=== PATIENT | female | born 1970 ===

== ENCOUNTER 2021-09-16 15:51 | Emergency (ER) | payer OTHER ==
--- OUTSIDE RECORDS SUMMARY | 2021-09-16 15:54 | XMS REPORT | Continuity of Care Document ---
:1970 Author Organization [facility] t Address [address] [place] [address] Care Team Providers Name Role Phone Di Alejandra DARBY Attending Clinician Joanne OROZCO Attending Clinician Unavailable Doctor Unassigned, Name Attending Clinician Unavailable LYNETTE Attending Clinician Unavailable Payers Payer Name Policy Type Policy Number Effective Date Expiration Date Alberto FLOR II [id number] 2017 00:00:00 Problems This patient has no known problems. Allergies, Adverse Reactions, Alerts Allergy Allergy Status Severity Reaction(s) Onset Inactive Treating Comm ents Source Name Type Date Date Clinician NO KNOWN Drug Active [facility] ALLERGIE Class [facility] Social History Social Habit Start Date Stop Date Quantity Comments Source Exposure to Not sure [facility] SARS-CoV-2 (event) Medica l Branch Sex Assigned At [birth year] [facility] 00:00:00 00:00:00 Medical Home Smoking Status Start Date Stop Date Source Unknown if ever smoked [facility] Medications Ordered Filled Start Stop Current Ordering Indication Dosage Frequency Signature Comments Components Source Medication Medication Date Date Medication? Clinician (SIG) Name Name gabapentin 2020- No [id number] 100mg Take 1 Univers 100 mg 02-19 05-03 capsule by ity of capsule 00:00: 04:59 mouth 3 [place] 00 :00 (three) Medical times Branch daily for 10 days. valACYclovi 2020- No [id number] 1g Take 1 Univers r 1 gram 02-19 04-30 tablet by ity o f tablet 00:00: 04:59 mouth 3 [place] 00 :00 (three) Medical times Branch daily for 7 days. acetaminoph Yes 1{tbl} Take 1 Un tea en-codeine 5-06 tablet by ity of 300-30 mg 00:00: mouth [place] tablet 00 every 4 Medical (four) Branch hours as needed for Pain (scale 4-6) (Cough). acetaminoph Yes 1{tbl} Take 1 Un tea en-codeine 5-06 tablet by ity of 300-30 mg 00:00: mouth [place] tablet 00 every 4 Medical (four) Branch hours as needed for Pain (scale 4-6) (Cough). Vital Signs Vital Name Observation Time Observation Value Comments Source Systolic blood 2021-02-19 19:06:00 143 [facility]Hg[facility] Diastolic blood 2021-02-19 19:06:00 109 mm[Hg] [facility] Heart rate 2021-02-19 19:06:00 109 /min [facility] Body temperature 2021-02-19 19:06:00 37.11 Luanne [facility] Respiratory rate 2021-02-19 19:06:00 18 /min [facility] Body weight 2021-02-19 19:06:00 117.935 kg [facility] BMI 2021-02-19 19:06:00 44.63 kg/m2 [facility] Oxygen saturation in 2021-02-19 19:06:00 98 /min [facility] Arterial blood by [facility] Pulse oximetry Branch Procedures Procedure Date / Time Performed Performing Clinician Jeffrey e NOTICE OF PRIVACY 2021-02-19 19:02:09 Doctor Unassigned, No [facility] PRACTICES Name Medical Branch CONSENT/REFUSAL FOR 2021-02-19 19:02:01 Doctor Unassigned, No Un [facility] DIAGNOSIS AND Name Medical Branch TREATMENT Encounters Start End Encounter Admission Attending Care Care Encounter Source Date/Time Date/Time Type Type Clinicians Facility Department ID 2021-08-30 Emergency [facility] [id number] Univers 14:41:44 [facility] 2021-09-08 2021-09-08 ambulatory [facility] [id number] [facility] 2021-08-26 2021-08-26 Outpatient [facility] [id number] [facility] 2021-03-16 2021-03-16 [id number] 2021-02-19 2021-02-19 Emergency Aramis Sevilla [facility] [id number] Univers 14:08:00 15:10:00 Alejandra Nolasco [id number] i ty [facility] [id number] [facility] [id number] [facility] 084 Branch 2021-02-19 2021-02-19 Outpatient Angélica OROZCO [facility] [id number] Univers 13:40:00 13:40:00 BHAVESH ity [facility] 2021-02-19 2021-02-19 Orders Doctor CUELLAR [id number] Univers 00:00:00 00:00:00 Only Unassigned, RAY [id number] ity of [place] [facility] [id number] [place] [id number] [facility] 009 Branch 2018-03-04 2018-03-05 Emergency X LYNETTE [facility] ERT [id number] Univers 23:51:52 01:32:00 JALEESA gutierrez [facility] Results This patient has no known results.
[2021-09-16] MEDS ORDERED: ASPIRIN 81 MG CHEWABLE TABLET ONE (16:09)
[2021-09-16 16:24] LABS: Absolute Lymphocytes (CBC) 2.3 K/uL (0.7-4.9); Basophils % 0.4 % (0-1.3); Lymphocytes % 22.6 % (15.3-44.8); MPV 8.3 fL (7.6-11.3); Protime INR 0.95; RBC Red Blood Cell Count 4.99 M/uL (3.86-4.86)
--- NOTE | 2021-09-16 16:49 | RAD REPORT ---
EXAM DESCRIPTION: RAD - Chest Single View - 09/16/2021 4:19 pm CLINICAL HISTORY: CHEST PAIN COMPARISON: February 2009 TECHNIQUE: AP portable chest image was obtained 09/16/2021 4:19 pm . FINDINGS: Lungs are clear. Heart and vasculature are normal. No measurable pleural effusion and no p neumothorax. No acute bony abnormality seen. No acute aortic findings suspected. IMPRESSION: No acute cardiopulmonary process.
[2021-09-16 17:01] LABS: AST/SGOT 12 U/L (15-37); Bilirubin Direct < 0.1 mg/dL (0-0.2); NT PRO-BNP 38 pg/mL (<125); Troponin (Emerg Dept Use Only) < 0.02 ng/mL (0.0-0.045)
[2021-09-16 17:12] LABS: ALT/SGPT 22 U/L (12-78); Alkaline Phosphatase 91 U/L (45-117); BUN Blood Urea Nitrogen 21 mg/dL (7-18); Bicarbonate 28 mmol/L (21-32); Bilirubin Total 0.4 mg/dL (0.2-1.0); Glucose Level 97 mg/dL (74-106); Magnesium 2.4 mg/dL (1.8-2.4); Potassium 3.7 mmol/L (3.5-5.1); Sodium Level 142 mmol/L (136-145)
--- NOTE | 2021-09-16 17:19 | EDPHYS ---
Physician Documentation [facility] Name: Rosenda Leroy Age: 51 yrs Sex: Female : 1970 Arrival Date: 09/16/2021 Time: 15:52 Bed 18 Private MD: Eleanor Alvarado ED Physician Buddy Matos HPI: 09/16 16:18 This 51 yrs old Female presents to ER via Ambulatory with complaints of Chest kb Pain. 16:18 The patient or guardian reports chest pain that is located primarily in the anterior kb chest wall, left. Onset: 3 day(s) ago. The pain does not radiate. Associated signs and symptoms: The patient has no apparent associated signs or symptoms. The chest pain is described as aching. Duration: The patient or guardian reports multiple episodes, that are intermittent. Modifying factors: The symptoms are alleviated by nothing. the symptoms are aggravated by nothing. Severity of pain: At its worst the pain was mild in the emergency department the pain is unchanged. The patient has not experienced similar symptoms in the past. The patient has not recently seen a physician. Pt reports left chest pain that started 3-4 days ago. STates it has been intermittent. Came today because it has continued so she thought she should get it checked. 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 - Social history:: Smoking status: Patient denies any tobacco usage or history of. ROS: 16:18 Constitutional: Negative for fever, chills, and weight loss. kb 16:18 Cardiovascular: Positive for chest pain, Negative for edema, orthopnea, palpitations, paroxysmal nocturnal dyspnea. 16:18 All other systems are negative. Exam: 16:18 Constitutional: This is a well developed, well nourished patient who is awake, alert, kb and in no acute distress. Head/Face: Normocephalic, atraumatic. ENT: Moist Mucous membranes Cardiovascular: Regular rate and rhythm with a normal S1 and S2. No gallops, murmurs, or rubs. No pulse deficits. Respiratory: Respirations even and unlabored. No increased work of breathing, no retractions or nasal flaring. Skin: Warm, dry with normal turgor. Normal color. MS/ Extremity: Pulses equal, no cyanosis. Neurovascular intact. Full, normal range of motion. Neuro: Awake and alert, GCS 15, oriented to person, place, time, and situation. Moves all extremities. Normal gait. Psych: Awake, alert, with orientation to person, place and time. Behavior, mood, and affect are within normal limits. 16:27 ECG was reviewed by the Attending Physician. imani Vital Signs: 15:55 BP 126 / 97; Pulse 79; Resp 18; Temp 97.4(TE); Pulse Ox 100% on R/A; Weight 97.98 kg; tw2 Height 5 ft. 1 in. (154.94 cm); Pain 7/10; 16:45 BP 126 / 74; Pulse 72; Resp 18; Temp 97.6; Pulse Ox 99% on R/A; sl2 15:55 Body Mass Index 40.81 (97.98 kg, 154.94 cm) tw2 MDM: 16:00 Patient medically screened. kb 16:17 Data reviewed: vital signs, nurses notes. Data interpreted: Pulse oximetry: on room air kb is 100 %. Interpretation: normal. 17:17 ECG:. Counseling: I had a detailed discussion with the patient and/or guardian imani regarding: the historical points, exam findings, and any diagnostic results supporting the discharge/admit diagnosis, lab results, radiology results, the need for outpatient follow up, a family practitioner, to return to the emergency department if symptoms worsen or persist or if there are any questions or concerns that arise at home. ED course: Pt states she thinks it is stress causing her symptoms. 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 Pt will follow up with PCP. 09/16 16:00 Order name: Basic Metabolic Panel; Complete Time: 17:13 kb 09/16 16:00 Order name: CBC with Diff; Complete Time: 16:29 kb 09/16 16:00 Order name: LFT's; Complete Time: 17:13 kb 09/16 16:00 Order name: Magnesium; Complete Time: 17:13 kb 09/16 16:00 Order name: NT PRO-BNP; Complete Time: 17:13 kb 09/16 16:00 Order name: PT-INR; Complete Time: 16:27 kb 09/16 16:00 Order name: Troponin (emerg Dept Use Only); Complete Time: 17:13 kb 09/16 16:00 Order name: XRAY Chest (1 view); Complete Time: 16:52 kb 09/16 16:00 Order name: EKG; Complete Time: 16:01 kb 09/16 16:00 Order name: Cardiac monitoring; Complete Time: 16:48 kb 09/16 16:00 Order name: EKG - Nurse/Tech; Complete Time: 16:08 kb 09/16 16:00 Order name: IV Saline Lock; Complete Time: 16:48 kb 09/16 16:00 Order name: Labs collected and sent; Complete Time: 16:48 kb 09/16 16:00 Order name: O2 Per Protocol; Complete Time: 16:48 kb 09/16 16:00 Order name: O2 Sat Monitoring; Complete Time: 16:48 kb EC:27 Rate is 79 beats/min. Rhythm is regular. QRS Cammal is Normal. AK interval is normal at kb 160 msec. QRS interval is normal at 92 msec. QT interval is normal at 402 msec. Administered Medications: 16:14 Drug: Aspirin Chewable Tablet 324 mg Route: PO; sl2 16:57 Follow up: Response: No adverse reaction sl2 Disposition: 18:01 Co-signature as Attending Physician, Buddy Matos MD. rn Disposition Summary: 09/16/21 17:18 Discharge Ordered Location: Home kb Condition: Stable kb Diagnosis - Chest pain, unspecified kb - Acute stress reaction kb Followup: kb - With: Emergency Department - When: As needed - Reason: Worsening of condition Followup: kb - With: Private Physician - When: 2 - 3 days - Reason: Recheck today's complaints, Continuance of care, Re-evaluation by your physician Discharge Instructions: - Discharge Summary Sheet kb - Nonspecific Chest Pain, Adult, [id number] kb - Stress, Adult kb Forms: - Medication Reconciliation Form kb - Thank You Letter kb - Antibiotic Education kb - Prescription Opioid Use kb Signatures: Dispatcher [employer] EDDianna Graham VOLUNTEER FIRE FIGHTER-C VOLUNTEER FIRE FIGHTER-Ckb Buddy Matos MD MD rn Annette Blanchard RN RN tw2 Suzanne Woodruff RN RN sl2
--- NOTE | 2021-09-16 17:19 | ER ---
Nurse's Notes [facility] Name: Rosenda Leroy Age: 51 yrs Sex: Female : 1970 Arrival Date: 09/16/2021 Time: 15:52 Bed 18 Private MD: Eleanor Alvarado Diagnosis: Chest pain, unspecified;Acute stress reaction Presentation: 09/16 15:55 Chief complaint: Patient states: i have been having a pain in my LEFT upper chest. it tw2 comes and goes for 3 or 4 days. its a stabbing pain. it doesn't stay long. it happens at any time no matter if i am sitting or standing. Coronavirus screen: At this time, the client does not indicate any symptoms associated with coronavirus-19. Ebola Screen: Patient denies travel to an Ebola-affected area in the 21 days before illness onset. Initial Sepsis Screen: Does the patient meet any 2 criteria? No. Patient's initial sepsis screen is negative. Does the patient have a suspected source of infection? No. Patient's initial sepsis screen is negative. Risk Assessment: Do you want to hurt yourself or someone else? Patient reports no desire to harm self or others. Onset of symptoms was September 16, 2021. 15:55 Method Of Arrival: Ambulatory tw2 15:55 Acuity: KIRSTIE 3 tw2 Triage Assessment: 15:58 General: Appears in no apparent distress. obese, Behavior is calm, cooperative, tw2 appropriate for age. Pain: Complains of pain in anterior aspect of left upper chest. Cardiovascular: Reports chest pain. 15:58 Cardiovascular: Denies shortness of breath. 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 - Social history:: Smoking status: Patient denies any tobacco usage or history of. Screenin:07 Abuse screen: Denies threats or abuse. Nutritional screening: No deficits noted. tw2 Tuberculosis screening: No symptoms or risk factors identified. Fall Risk None identified. Assessment: 16:08 Pain: Pain does not radiate. Pain began 3 or 4 days. tw2 Vital Signs: 15:55 BP 126 / 97; Pulse 79; Resp 18; Temp 97.4(TE); Pulse Ox 100% on R/A; Weight 97.98 kg; tw2 Height 5 ft. 1 in. (154.94 cm); Pain 7/10; 16:45 BP 126 / 74; Pulse 72; Resp 18; Temp 97.6; Pulse Ox 99% on R/A; sl2 15:55 Body Mass Index 40.81 (97.98 kg, 154.94 cm) tw2 ED Course: 15:52 Patient arrived in ED. as 15:52 Eleanor Alvarado is Private Physician. as 15:57 Triage completed. tw2 15:58 Arm band placed on. tw2 15:58 Placed in gown. Bed in low position. Call light in reach. monitoring coordinator on. Pulse ox tw2 on. NIBP on. 16:00 Dianna Carvajal FNP-C is PHCP. kb 16:00 Buddy Matos MD is Attending Physician. kb 16:08 Patient maintains SpO2 saturation greater than 95% on room air. tw2 16:19 XRAY Chest (1 view) In Process Unspecified. EDMS 16:48 Suzanne Woodruff, SOHAN is Primary Nurse. sl2 17:07 No provider procedures requiring assistance completed. sl2 17:31 IV discontinued, intact, bleeding controlled, No redness/swelling at site. Pressure sl2 dressing applied. Administered Medications: 16:14 Drug: Aspirin Chewable Tablet 324 mg Route: PO; sl2 16:57 Follow up: Response: No adverse reaction sl2 Outcome: 17:18 Discharge ordered by . kb 17:30 Discharged to home ambulatory, with family. sl2 17:30 Condition: stable 17:30 Discharge instructions given to patient, family, Instructed on discharge instructions, follow up and referral plans. Demonstrated understanding of instructions, follow-up care. 17:31 Patient left the ED. sl2 Signatures: Dispatcher [employer] EDNJ Dianna Carvajal FNP-C FNP-Ckb Martinez, Amelia as Annette Blanchard RN RN tw2 Landell, Suzanne, RN RN sl2
[2021-09-16 17:54] VITALS: BP 126/74; TEMP 97.6; O2SAT 99
== END 2021-09-16 17:31 | disposition home or self-care (01) ==
LOC: ER 15:51
DX: R07.9 Chest pain, unspecified (principal); F43.0 Acute stress reaction; I10 Essential (primary) hypertension
CPT/HCPCS: 36415; 71045; 80048; 80076; 83735; 83880; 84484; 85025; 85610; 93005; 99284